=== PATIENT | male | born 1970 | race Native Hawaiian/Other Pacific Islander ===

== ENCOUNTER 2019-10-09 07:57 | Outpatient (CLI) | payer BC | END 2019-10-09 20:07 | disposition home or self-care (01) | LOC: US 07:57 | DX: R10.819 Abdominal tenderness, unspecified site (principal) ==

== ENCOUNTER 2022-06-11 08:59 | Outpatient (CLI) | payer BC | END 2022-06-11 21:48 | disposition home or self-care (01) | LOC: RAD 08:59 | PROVIDERS: ATTEND Nurse Practitioner Family | DX: M25.552 Pain in left hip (principal) ==